=== PATIENT | male | born 1970 | race Caucasian/White ===

== ENCOUNTER 2017-09-25 13:46 | Emergency (ER) | payer SELFPAY ==
[2017-09-25 14:43] LABS: Bilirubin Negative (Negative); Blood, Urine Moderate (Negative); Clarity CLEAR (Clear); Glucose, Urine (Dipstick) Negative (Negative); Leukocyte Negative (Negative); Nitrite Negative (Negative); Protein, Urine (Dipstick) Negative (Neg-Trace); Specific Gravity, Urine 1.008 (1.002-1.036); Urobilinogen 0.2 mg/dL (0.2-1.0); pH, Urine 6.5 (5.0-9.0)
[2017-09-25 14:45] LABS: Bacteria/HPF None Seen HPF (None Seen); Hyaline Casts/LPF 0-3 HYALINE CAST LPF (0-3 Hyaline); Squamous Epithelial None Seen HPF (0-3); WBC/HPF None Seen HPF (0-3)
== END 2017-09-25 15:57 | disposition home or self-care (01) ==
LOC: ERS 13:46
DX: N40.1 Benign prostatic hyperplasia with lower urinary tract symptoms (principal); R33.8 Other retention of urine; F32.9 Major depressive disorder, single episode, unspecified; F41.9 Anxiety disorder, unspecified; F17.210 Nicotine dependence, cigarettes, uncomplicated
CPT/HCPCS: 81003; 81015; 99283

== ENCOUNTER 2017-11-02 11:16 | Emergency (ER) | payer SELFPAY | END 2017-11-02 12:05 | disposition home or self-care (01) | LOC: SCSER 11:16 | DX: J11.1 Influenza due to unidentified influenza virus with other respiratory manifestations (principal); F41.9 Anxiety disorder, unspecified; F32.9 Major depressive disorder, single episode, unspecified; F17.220 Nicotine dependence, chewing tobacco, uncomplicated; Z79.899 Other long term (current) drug therapy | CPT/HCPCS: 99406 ==

== ENCOUNTER 2019-01-09 11:17 | Emergency (ER) | payer BC, SELFPAY ==
[2019-01-09] MEDS ORDERED: predniSONE 20 MG TAB ONE (12:37)
[2019-01-09] MEDS ORDERED: Ketorolac Tromethamine 30 MG/ML VIAL ONE (12:37)
== END 2019-01-09 13:15 | disposition home or self-care (01) ==
LOC: SCSER 11:17
DX: M54.42 Lumbago with sciatica, left side (principal); F17.220 Nicotine dependence, chewing tobacco, uncomplicated
CPT/HCPCS: 96372; J1885; J7512

== ENCOUNTER 2019-07-19 06:44 | Emergency (ER) | payer BC, SELFPAY ==
[2019-07-19] MEDS ORDERED: Ondansetron PF 4 MG/2 ML Vial ONE (07:43)
[2019-07-19 08:04] LABS: #Eosinphils 0.1 thou/uL (0.0-0.7); #Lymphocytes 0.4 thou/uL (1.20-3.40); #Monocytes 0.4 thou/uL (0.11-0.59); #Neutrophils 11.2 thou/uL (1.40-6.50); %Basophils 0.1 % (0.0-1.0); %Eosinophils 0.9 % (0.0-10.0); %Monocytes 3.4 % (0.0-10.0); %Neutrophils 92.7 % (42.0-75.0); Mean Corpuscular HGB CONC 34.4 g/dL (32.0-36.0); Mean Corpuscular Hemoglobin 31.3 pg (27.0-31.0); Mean Corpuscular Volume 91.1 fL (78.0-98.0); Mean Platelet Volume 7.7 fL (7.4-10.4); Platelet Count 199 thou/uL (130-400); RBC Distribution Width 11.4 % (11.5-14.5); Red Blood Cell (RBC) Count 4.46 mill/uL (4.70-6.10)
[2019-07-19 08:24] LABS: ALT (SGPT) 18 U/L (8-55); AST (SGOT) 16 U/L (5-34); Albumin 4.2 g/dL (3.5-5.0); Alkaline Phosphatase 64 U/L (40-110); Anion Gap 12 mmol/L (10-20); BUN (Urea Nitrogen) 27 mg/dL (8.9-20.6); Bilirubin, Total 0.9 mg/dL (0.2-1.2); Calc. Creatinine Clearance 0 mL/min (70-130); Calcium 9.5 mg/dL (7.8-10.44); Carbon Dioxide 24 mmol/L (22-29); Chloride 106 mmol/L (98-107); Estimated GFR-MDRD Greater than 90; Globulin 2.4 g/dL (2.4-3.5); Glucose 101 mg/dL (70-105); Lipase 11 U/L (8-78); Potassium 3.5 mmol/L (3.5-5.1); Protein, Total 6.6 g/dL (6.0-8.3); Sodium 138 mmol/L (136-145)
== END 2019-07-19 09:09 | disposition home or self-care (01) ==
LOC: ERS 06:44
DX: R11.2 Nausea with vomiting, unspecified (principal); R19.7 Diarrhea, unspecified; F41.9 Anxiety disorder, unspecified; F32.9 Major depressive disorder, single episode, unspecified; F17.220 Nicotine dependence, chewing tobacco, uncomplicated; Z79.899 Other long term (current) drug therapy
CPT/HCPCS: 36415; 80053; 83690; 84484; 85025; 93005; J0500; J2405

== ENCOUNTER 2020-07-15 10:44 | Inpatient (IN) | payer OTHER, SELFPAY ==
[2020-07-15] MEDS ORDERED: Cefepime 2 GM VIAL ONE (11:23)
[2020-07-15] MEDS ORDERED: Acetaminophen 500 MG TAB ONE (11:23)
[2020-07-15 12:07] LABS: #Eosinphils 0.4 thou/uL (0.0-0.7); #Lymphocytes 0.7 thou/uL (1.20-3.40); #Monocytes 0.8 thou/uL (0.11-0.59); #Neutrophils 4.8 thou/uL (1.40-6.50); %Basophils 0.4 % (0.0-1.0); %Eosinophils 5.4 % (0.0-10.0); %Lymphocytes 10.5 % (21.0-51.0); %Monocytes 11.6 % (0.0-10.0); %Neutrophils 72.1 % (42.0-75.0); Hemoglobin 14.5 g/dL (14.0-18.0); Mean Corpuscular HGB CONC 34.6 g/dL (32.0-36.0); Mean Corpuscular Hemoglobin 31.6 pg (27.0-31.0); Mean Corpuscular Volume 91.6 fL (78.0-98.0); Mean Platelet Volume 7.7 fL (7.4-10.4); Platelet Count 190 thou/uL (130-400); RBC Distribution Width 11.3 % (11.5-14.5); Red Blood Cell (RBC) Count 4.58 mill/uL (4.70-6.10); White Blood Cell (WBC) Count 6.6 thou/uL (4.8-10.8)
[2020-07-15] MEDS ORDERED: Vancomycin 1.5 GRAM/300 ML BAG 1.5 GM in Premix Bag 1 BAG IVPB SCH (12:15)
--- NOTE | 2020-07-15 12:28 | ULT ---
Exam:Rightlower extremity venous ultrasound with Doppler HISTORY: Rightlower extremity swelling COMPARISON: None TECHNIQUE: Grayscale, color flow, Doppler imaging and spectral wave muscle performed right lower extr emity venous system FINDINGS: There is compressibility, presence of flow and augmentation in the common femoral vein, femoral vein and popliteal vein. There is flow in the posterior tibial vein. There is flow in the greater saphenous vein and profunda femoral vein There is edema involving the right ankle. There is a 0.6 x 1.9 cm nonspecific fluid collection. There is a second ill-defined hypoechoic focus measuring 1.2 x 1.5 x 0.3 cm. IMPRESSION: 1. No thrombus in the right lower extremity deep venous system. 2. Edema at the level the ankle. Small fluid collection is nonspecific. There is also ill-defined hyp oechoic area. Correlate for phlegmon versus possible early developing abscess.
[2020-07-15 12:34] LABS: ALT (SGPT) 15 U/L (8-55); AST (SGOT) 17 U/L (5-34); Albumin 3.8 g/dL (3.5-5.0); Alkaline Phosphatase 100 U/L (40-110); Anion Gap 13 mmol/L (10-20); BUN (Urea Nitrogen) 16 mg/dL (8.9-20.6); Bilirubin, Total 0.2 mg/dL (0.2-1.2); Calc. Creatinine Clearance 0 mL/min (70-130); Calcium 9.8 mg/dL (7.8-10.44); Carbon Dioxide 28 mmol/L (22-29); Chloride 103 mmol/L (98-107); Estimated GFR-MDRD Greater than 90; Globulin 3.4 g/dL (2.4-3.5); Glucose 73 mg/dL (70-105); Potassium 3.7 mmol/L (3.5-5.1); Protein, Total 7.2 g/dL (6.0-8.3); Sodium 140 mmol/L (136-145)
--- NOTE | 2020-07-15 14:08 | RAD ---
RIGHT ANKLE 3 VIEWS: Date: 07/15/2020 INDICATION: History of right ankle redness and swelling with pain. COMPARISON: Prior exam dated 01/31/2013. FINDINGS: No acute fracture or subluxation is evident. There is soft tissue swelling surrounding the right ankl e. Enthesopathic change is seen off of the calcaneus, slightly more prominent than on the prior exam. IMPRESSION: Soft tissue swelling of the right ankle without acute osseous abnormality. POS: BH
[2020-07-15] MEDS ORDERED: Ondansetron ODT 4 MG TAB PO PRN (14:26)
[2020-07-15] MEDS ORDERED: Ondansetron PF 4 MG/2 ML Vial IVP PRN (14:26)
[2020-07-15] MEDS ORDERED: Acetaminophen 325 MG TAB PO PRN (14:26)
[2020-07-15] MEDS ORDERED: Acetaminophen/Codeine 30-300mg Tablet PO PRN (14:31)
[2020-07-15 16:23] VITALS: BMI 27.7
[2020-07-15] MEDS: Sodium Chloride 0.9% 1,000 ML IV SCH (16:35)
[2020-07-15] MEDS: HYDROcodone/Acetaminophen 7.5/325 mg Tablet PO PRN ×2 (18:26→22:38)
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
[2020-07-15] MEDS: Piperacillin/Tazobactam 4.5 GM in Sodium Chloride 0.9% 100 ML IVPB SCH (21:40)
[2020-07-15] MEDS ORDERED: PARoxetine 20 MG TAB PO SCH (23:45)
[2020-07-15] MEDS: Vancomycin 1.5 GRAM/300 ML BAG 1.5 GM in Premix Bag 1 BAG IVPB SCH (23:56)
[2020-07-15] MEDS: PARoxetine 20 MG TAB PO SCH (23:58)
[2020-07-16] MEDS: Sodium Chloride 0.9% 1,000 ML IV SCH (06:17)
[2020-07-16] MEDS: Piperacillin/Tazobactam 4.5 GM in Sodium Chloride 0.9% 100 ML IVPB SCH ×3 (06:23→21:15)
[2020-07-16] MEDS: HYDROcodone/Acetaminophen 7.5/325 mg Tablet PO PRN ×3 (06:26→21:14)
[2020-07-16 06:55] LABS: #Eosinphils 0.2 thou/uL (0.0-0.7); #Lymphocytes 0.5 thou/uL (1.20-3.40); #Monocytes 0.6 thou/uL (0.11-0.59); #Neutrophils 5.5 thou/uL (1.40-6.50); %Eosinophils 2.6 % (0.0-10.0); %Lymphocytes 7.3 % (21.0-51.0); %Monocytes 9.2 % (0.0-10.0); %Neutrophils 80.9 % (42.0-75.0); Hemoglobin 13.7 g/dL (14.0-18.0); Mean Corpuscular HGB CONC 33.1 g/dL (32.0-36.0); Mean Corpuscular Volume 93.7 fL (78.0-98.0); Mean Platelet Volume 7.9 fL (7.4-10.4); Platelet Count 184 thou/uL (130-400); RBC Distribution Width 11.5 % (11.5-14.5); Red Blood Cell (RBC) Count 4.43 mill/uL (4.70-6.10); White Blood Cell (WBC) Count 6.7 thou/uL (4.8-10.8)
[2020-07-16 07:14] LABS: Anion Gap 10 mmol/L (10-20); BUN (Urea Nitrogen) 9 mg/dL (8.9-20.6); Calc. Creatinine Clearance 164 mL/min (70-130); Calcium 9.5 mg/dL (7.8-10.44); Carbon Dioxide 24 mmol/L (22-29); Chloride 107 mmol/L (98-107); Estimated GFR-MDRD Greater than 90; Glucose 99 mg/dL (70-105); Potassium 3.8 mmol/L (3.5-5.1); Sodium 137 mmol/L (136-145)
--- NOTE | 2020-07-16 08:30 | CON ---
DATE OF CONSULTATION: 07/16/2020 REQUESTING PHYSICIAN: Johnnie Correia MD. CONSULTING PHYSICIAN: Tim Ward MD. REASON FOR CONSULTATION: Right foot erythema and swelling after subcutaneous injection. BRIEF CLINICAL HISTORY: Hans is a 49-year-old male, who was admitted by the Medicine Service yesterday after he presented to the emergency room for pain in the right foot which started after he had injected himself with heroin. He had delayed subacute onset of swelling and discomfort in and around the injection site, which got worse until he presented to the emergency room after he could not stand and bear weight. He has been started on empiric antibiotics to include vancomycin and Zosyn. Our service was consulted to evaluate for septic joint. Plain radiographs have been obtained, which do not demonstrate a lytic or blastic changes in and around the ankle. No cortical disruption is identified. C-reactive protein was 2.88 and he does not have an elevated white count at this time. He denies any constitutional symptoms. He denies any nausea or vomiting and is essentially pain which brought him to present. He denies any symptoms of COVID to include fevers, nausea, vomiting, headaches, or myalgias. PHYSICAL EXAMINATION: VITAL SIGNS: Temperature 98.9, pulse 78, respiratory rate 18 and nonlabored, O2 saturation 99% on room air, blood pressure is 129/77. GENERAL: He is alert and oriented to person, place, time, and situation. Responsive and appropriate with examiner. MUSCULOSKELETAL: Inspection of the right lower extremity demonstrates him to have erythema circumferentially around the superior flare of the medial malleolus on the right ankle. He does have a little erythema extending up on the medial leg along tibial mid smith, but there is some sparing between the central aspect of the erythema over the malleolus and the erythema on the mid smith which does juanita. He has adequate range of motion to plantar flexion, dorsiflexion, inversion, eversion passively, and actively, but tenderness is elicited with palpation in and around his erythema. It is exquisitely tender and juanita with pressure. No active oozing is noted. LABORATORY DATA: White blood cell count is 6.7, hemoglobin 13, hematocrit 41.5. Sedimentation rate is 6 and C-reactive protein was 2.88. IMPRESSION: Right ankle instep cellulitis localized over injection site. PLAN: 1. At this point, I will defer to Medicine to continue empiric antibiotics for most likely a Staphylococcus. 2. No surgical intervention is warranted at this point, but we will recheck the patient in 24 hours and I may make him n.p.o. after midnight in the morning just in case there are some loculations to debride. No further studies are warranted at this point, just clinical followup. Once his pain is improved, he may stand and bear weight as tolerated. Job ID: [id number]
[2020-07-16] MEDS ORDERED: FLU VACC QS2020-21(6MOS UP)/PF 60 MCG/0.5 ML SYRINGE IM ONE (09:00)
[2020-07-16] MEDS: Vancomycin 1.5 GRAM/300 ML BAG 1.5 GM in Premix Bag 1 BAG IVPB SCH (09:50)
[2020-07-16] MEDS: Enoxaparin Sodium 40 MG/0.4 ML SYRINGE SC SCH (09:51)
[2020-07-16] MEDS: PARoxetine 20 MG TAB PO SCH (09:52)
[2020-07-16] MEDS: Ketorolac Tromethamine 30 MG/ML VIAL IVP PRN ×2 (10:00→17:44)
[2020-07-16 10:56] LABS: SARS-CoV-2 MS2 Positive; SARS-CoV-2 N Gene Positive; SARS-CoV-2 S Gene Positive; SARS-CoV-2 by NAA DETECTED (NotDetected); SARS-CoV-2 orf1ab Positive
[2020-07-16 12:49] LABS: HBSAg Index 0.21 S/CO (0-0.99); HIV (1/2) Antibody/Antigen Non-Reactive (NonReactive); HIV 1/2 INDEX 0.13 S/CO (<1.00); Hep B Surf Ag Non-Reactive S/CO (NonReactive); Hep C IgG Ab Non-Reactive (NonReactive)
[2020-07-16 12:53] LABS: HBSAB Concentration 42.08 mIU/mL; Hep B Surf AB Reactive (NonReactive)
--- NOTE | 2020-07-16 13:15 | PDOC.HOSPP ---
- Subjective Encounter Date: 07/16/20 Encounter Time: 08:00 Subjective: F/u: right foot cellulitis, heroin abuse The patient still complains of right foot pain but states the swelling has diminished some. He states he was clean from heroin for 7 years, but relapsed earlier this year when he was having months of weakness and fatigue. He was found to have heart rate in the 30's and had a pacemaker inserted in April. He has continued using heroin since then He still has been having generalized weakness. He decided to get heroin and shoot it in his arm, but wasn't able to, so out of anger injected his foot. He avoided coming to the hospital for a few days because he was embarrassed but his friend encouraged him to . He states it is still very painful to stand on his right leg and he is unable to walk . His calf pain has improved He denies any significant chest pain or shortness of breath. Patient is sexually active occasionally. Reports using clean needles and negative HIV test and hepatitis test last year. He is agreeable to retesting - Objective Vital Signs & Weight: Vital Signs (12 hours) Temp Pulse Resp BP Pulse Ox 07/16/20 11:06 99.0 F 80 20 123/72 97 07/16/20 07:21 99.1 F 82 18 143/75 H 95 07/16/20 04:13 98.1 F 78 18 129/77 99 Weight Weight 210 lb Result Diagrams: 07/16/20 06:26 07/16/20 06:26 Hospitalist ROS - Review of Systems Constitutional: denies: fever, chills - Medication Medications: Active Medications Generic Name Dose Route Start Last Admin Trade Name Marco Antonio PRN Reason Stop Dose Admin Hydrocodone Bitart/Acetaminophen 1 tab 07/15/20 17:28 07/16/20 06:26 Hydrocodone/Acetaminophen 7.5/325 Mg Tablet PO 1 tab Q4H PRN Administration Mild Pain (1-3) Enoxaparin Sodium 40 mg 07/16/20 09:00 07/16/20 09:51 Enoxaparin Sodium 40 Mg/0.4 Ml Syringe SC 40 mg 0900 CHRIS Administration Piperacillin Sod/Tazobactam 100 mls @ 200 mls/hr 07/15/20 22:00 07/16/20 06:23 Sod 4.5 gm/ Sodium Chloride IVPB 100 mls Q8HR CHRIS Administration Vancomycin HCl 1.5 gm/ Device 300 mls @ 200 mls/hr 07/15/20 23:00 07/16/20 09:50 IVPB 300 mls 0700,1500,2300 CHRIS Administration Ketorolac Tromethamine 30 mg 07/15/20 23:16 07/16/20 10:00 Ketorolac Tromethamine 30 Mg/Ml Vial IVP 07/20/20 23:17 30 mg Q6H PRN Administration Pain Ondansetron HCl 4 mg 07/15/20 14:26 07/16/20 10:02 Ondansetron Pf 4 Mg/2 Ml Vial IVP 4 mg Q6H PRN Administration Nausea/Vomiting Paroxetine HCl 20 mg 07/15/20 09:00 07/16/20 09:52 Paroxetine 20 Mg Tab PO 20 mg DAILY CHRIS Administration - Exam General Appearance: NAD, awake alert Eye: PERRL, anicteric sclera ENT: normocephalic atraumatic, no oropharyngeal lesions Neck: no JVD Heart: no gallops, no rubs Heart - other findings: friction rub heard possibly left lower sternal border vs systolic murmur Respiratory: CTAB, no wheezes, no rales, no ronchi Gastrointestinal: soft, non-tender, non-distended, normal bowel sounds Extremities: no cyanosis, no clubbing, no edema Skin: normal turgor, no lesions, no rashes Skin - other findings: erythema extending up calf, but not significantly tender to palpation Neurological: cranial nerve grossly intact, normal sensation to touch, no weakness Musculoskeletal - other findings: palpable lump/mild abscess right ankle area. Warm and tender to palpation Psychiatric: normal affect, normal behavior, A&O x 3 Hosp A/P - Plan This is a 49 year old male who presented with right ankle abscess/cellulitis Right ankle abscess with cellulitis - area of swelling has improved . Continue IV vancomycin and zosyn - orthopedics was consulted and no surgical intervention for now, but will make NPO after midnight in case it is worsening Systolic murmur vs friction rub - ECHO is pending Heroin abuse - Patient states he has been to rehab three times and will probably check himself into rehab when he leaves the hospital - check HIV test, hepatitis B and C Generalized weakness - maybe COVID related? - will monitor - will order PT evaluation. Nonweight bearing to right leg for now COVID+ - will place on isolation precautions. He denies respiratory symptoms Anemia - Hb 13.7, will monitor DVT prophylaxis: lovenox Code status: full code
[2020-07-16 14:43] LABS: Vancomycin, Trough 27.3 ug/mL
[2020-07-16] MEDS ORDERED: Vancomycin 1.5 GRAM/300 ML BAG 1.5 GM in Premix Bag 1 BAG IVPB SCH (15:00)
[2020-07-17] MEDS: HYDROcodone/Acetaminophen 7.5/325 mg Tablet PO PRN ×3 (02:10→20:47)
[2020-07-17 02:34] LABS: Vancomycin, Random 7.1 ug/mL (See Comment)
[2020-07-17] MEDS: Vancomycin HCl 1.25 GM in Sodium Chloride 0.9% 250 ML 250 ML IVPB SCH ×3 (03:22→18:09)
[2020-07-17] MEDS: Ketorolac Tromethamine 30 MG/ML VIAL IVP PRN ×2 (05:28→13:04)
[2020-07-17] MEDS: Piperacillin/Tazobactam 4.5 GM in Sodium Chloride 0.9% 100 ML IVPB SCH ×3 (05:29→20:49)
[2020-07-17] MEDS: Enoxaparin Sodium 40 MG/0.4 ML SYRINGE SC SCH ×2 (09:31→09:48)
[2020-07-17] MEDS: PARoxetine 20 MG TAB PO SCH (09:31)
--- NOTE | 2020-07-17 10:51 | PRG ---
DATE OF SERVICE: 07/17/2020 SUBJECTIVE: Hans is a 49-year-old male, who is hospital day 2 for admission of a right foot cellulitis and probable abscess. Blood cultures have not yielded any organisms at this point. Subjectively, he is improving with the vancomycin and Zosyn. His white blood cell count still hovers around 6.7, and his pain is better and he has been able to stand, bear weight and mobilize on the foot. OBJECTIVE: VITAL SIGNS: Temperature 99.6, pulse 74, respiratory rate is 18, O2 saturation is 93% on room air, and blood pressure 119/64. GENERAL: He is alert and oriented to person, place, time, situation. Responsive and appropriate with examiner. EXTREMITIES: Visual inspection of the right lower extremity demonstrates him to have a small area of erythema, which measures about 8 x 8 cm in circumference and blanches with pressure. He still has a little erythema in the mid smith consistent with phlebitis. Otherwise, it is indurated and tender, this is just anterior to the lateral malleolus. IMPRESSION: Strongly suspect small subcutaneous abscess over the right anterior mid foot. PLAN: We will continue IV antibiotics for another 24 hours. I will go ahead and allow him to have regular diet at this point, but tomorrow morning, we could perform a bedside I and D with open packing and will have Wound Care come with us to pack and dress if needed. Job ID: [id number]
[2020-07-17] MEDS ORDERED: Lidocaine 2% 20 ml MDV SC SCH (12:45)
[2020-07-17] MEDS ORDERED: Lidocaine 1% (PF) 30 ML VIAL ONE (13:01)
--- NOTE | 2020-07-17 14:41 | OP ---
DATE OF PROCEDURE: 07/17/2020 PREOPERATIVE DIAGNOSIS: Right foot medial instep abscess. POSTPROCEDURE DIAGNOSIS: Right foot medial instep abscess. PROCEDURE PERFORMED: Incision, drainage, irrigation, debridement, washout, and packing of right foot abscess. BRIEF CLINICAL HISTORY: Hans is a 49-year-old male who has been admitted now for 2 days, receiving IV antibiotics in the form of Zosyn and vancomycin for a cellulitis of the right foot, which started when he was injecting heroin prior to admission. The injection site became erythematous and painful. He was admitted, started on empiric antibiotics. I saw him yesterday and he has had very little interval change in his abscess induration, which appears to be deeper than the subcutaneous layer on the medial instep just anterior to the medial malleolus of the right ankle. Therefore, I decided to go ahead and proceed with an incision, drainage, washout, irrigation, and debridement at the bedside under local to obtain culture as well as for symptomatic treatment. SPECIMENS: Culturette 2 sent, gross; appearance, brown, purulent, clumpy; drainage was ex-cavitated from the abscess and expressed from the wound. DESCRIPTION OF PROCEDURE: After informed consent was obtained, the patient was positioned appropriately in supine position. He received Toradol IV for pain control as well as 2% Xylocaine skin wheal local anesthetic lavage. After this was completed, a longitudinal incision was made directly over the apex of the abscess, which was noted by palpation. A good skin wheal anesthesia was obtained prior to this. I then used a Mosquito's to open the subcutaneous layer and immediately encountered the vault containing the brown purulent material, which was ex-cavitated with an instrumentation. Prior to this, copious irrigation was carried out with normal saline and Xylocaine. I then packed it with 1-inch strip of iodoform gauze. Sterile dressing was applied. Procedure was terminated without any complication. The patient tolerated well. The specimen was sent with Gram stain, culture and sensitivity. Also contacted the hospitalist service to decide whether or not Infectious Disease consult may be appropriate as a next step due to the fact that this did not have a typical gross appearance of staph or strep, but rather an atypical organism. We will follow up with Gram stain culture. Also consider treating empirically. Job ID: [id number]
--- NOTE | 2020-07-17 15:08 | PDOC.HOSPP ---
- Subjective Encounter Date: 07/17/20 Encounter Time: 10:00 Subjective: F/u: ankle abscess He states his leg pain is better and he was able to walk more, but still has severe pain standing for too long. He took a shower today. He had incision and drainage today, gross appearance did not look like staph per ortho The patient is interested in going to inpatient rehab after this, however dis cussed may be difficult if COVID positive - Objective Vital Signs & Weight: Vital Signs (12 hours) Temp Pulse Resp BP Pulse Ox 07/17/20 08:00 98.0 F 64 16 109/65 96 07/17/20 04:00 99.6 F 74 18 119/64 93 L Weight Weight 210 lb I&O: 07/16/20 07/17/20 07/18/20 06:59 06:59 06:59 Intake Total 2295 Output Total 650 Balance 1645 Result Diagrams: 07/16/20 06:26 07/16/20 06:26 Hospitalist ROS - Review of Systems Constitutional: denies: fever, chills - Medication Medications: Active Medications Generic Name Dose Route Start Last Admin Trade Name Freq PRN Reason Stop Dose Admin Hydrocodone Bitart/Acetaminophen 1 tab 07/15/20 17:28 07/17/20 02:10 Hydrocodone/Acetaminophen 7.5/325 Mg Tablet PO 1 tab Q4H PRN Administration Mild Pain (1-3) Enoxaparin Sodium 40 mg 07/16/20 09:00 07/17/20 09:48 Enoxaparin Sodium 40 Mg/0.4 Ml Syringe SC Not Given 0900 CHRIS Piperacillin Sod/Tazobactam 100 mls @ 200 mls/hr 07/15/20 22:00 07/17/20 05:29 Sod 4.5 gm/ Sodium Chloride IVPB 100 mls Q8HR CHRIS Administration Vancomycin HCl 1.25 gm/ Sodium 250 mls @ 166.667 mls/hr 07/17/20 03:00 07/17/20 11:34 Chloride IVPB 250 mls 0300,1100,1900 CHRIS Administration Ketorolac Tromethamine 30 mg 07/15/20 23:16 07/17/20 13:04 Ketorolac Tromethamine 30 Mg/Ml Vial IVP 07/20/20 23:17 30 mg Q6H PRN Administration Pain Ondansetron HCl 4 mg 07/15/20 14:26 07/16/20 10:02 Ondansetron Pf 4 Mg/2 Ml Vial IVP 4 mg Q6H PRN Administration Nausea/Vomiting Paroxetine HCl 20 mg 07/15/20 09:00 07/17/20 09:31 Paroxetine 20 Mg Tab PO Not Given DAILY CHRIS - Exam General Appearance: NAD, awake alert Eye: PERRL, anicteric sclera ENT: normocephalic atraumatic, no oropharyngeal lesions Neck: no JVD Heart: RRR, no murmur, no gallops, no rubs Respiratory: CTAB, no wheezes, no rales, no ronchi Gastrointestinal: soft, non-tender, non-distended, normal bowel sounds, no palpable masses Extremities: no cyanosis, no clubbing, no edema Extremities - other findings: right ankle abscess tender to palpation Skin - other findings: diminished erythema of the foot and leg. Swelling right foot Neurological: normal sensation to touch, no focal deficits, no new deficit Musculoskeletal: normal tone, normal strength, no muscle wasting Psychiatric: normal affect, normal behavior, A&O x 3 Hosp A/P - Plan ECHO: EF 55-60%, mild MR, mild TR This is a 49 year old male who presented with right ankle abscess/cellulitis Right ankle abscess with cellulitis - area of swelling has improved . Continue IV vancomycin and zosyn. Patient had beside I and D today. Gross appearance did not appear like staph - will follow up cultures - infectious disease consulted Systolic murmur vs friction rub - ECHO showed no vegetation Heroin abuse - Patient states he has been to rehab three times and will probably check himself into rehab when he leaves the hospital - HIV, hep B and C normal Generalized weakness - possibly from COVID - will monitor. PT is following the patient COVID+ - will place on isolation precautions for ten days. He denies respiratory symptoms Anemia - Hb 13.7, will monitor Dispo: f/u wound cultures DVT prophylaxis: lovenox Code status: full code
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
[2020-07-18 02:30] LABS: Vancomycin, Trough 13.4 ug/mL
[2020-07-18] MEDS: Vancomycin HCl 1.25 GM in Sodium Chloride 0.9% 250 ML 250 ML IVPB SCH ×3 (03:19→18:39)
[2020-07-18] MEDS: HYDROcodone/Acetaminophen 7.5/325 mg Tablet PO PRN ×4 (03:20→20:48)
[2020-07-18] MEDS: Piperacillin/Tazobactam 4.5 GM in Sodium Chloride 0.9% 100 ML IVPB SCH ×3 (04:51→21:37)
[2020-07-18] MEDS: Ketorolac Tromethamine 30 MG/ML VIAL IVP PRN ×3 (05:28→21:37)
[2020-07-18] MEDS: Enoxaparin Sodium 40 MG/0.4 ML SYRINGE SC SCH (07:12)
[2020-07-18] MEDS: PARoxetine 20 MG TAB PO SCH (07:12)
[2020-07-18] MEDS ORDERED: Morphine 4 MG/ML VIAL SLOW IVP SCH (09:45)
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
[2020-07-18] MEDS: Morphine 2 MG/ML VIAL SLOW IVP PRN ×3 (11:47→23:52)
--- NOTE | 2020-07-18 14:27 | PRG ---
DATE OF SERVICE: 07/18/2020 SUBJECTIVE: Mr. Jorge is less symptomatic, particularly in relationship to the right foot pain. Still with some brown-looking fluid in the foot according to orthopedic surgeon's review. No diarrhea. No respiratory symptoms. Voiding without difficulty and he has been afebrile throughout the hospital stay. OBJECTIVE: VITAL SIGNS: O2 saturations are 96% on room air and breathing at 18 times a minute. BP is normal. LUNGS: Symmetric air entry. HEART: S1 and S2, regular rate. ABDOMEN: Soft. EXTREMITIES: The right foot is dressed. Dressing not removed. LABORATORY DATA: White cell count 6.7, hemoglobin 13.7, platelets 184, 80% neutrophils. Creatinine 0.75. CRP 2.88. ASSESSMENT AND DISCUSSION: Longstanding IV heroin and methamphetamine use with relapse in April and two admissions since April for this problem and consequences of the injection sites. At this time, he is with abscess, which appears to be limited to the superficial layers of the cutaneous areas of the right foot status post incision and drainage. No evidence of tenosynovitis, septic arthritis, or osteomyelitis at this point in time. Blood cultures are negative. He has this probable foreign body in his right back area and that is going to have to be removed. Culture is still negative. Gram stain was negative. So, if the blood cultures remain negative and once things settle down, he can be discharged on oral doxycycline or Augmentin or quinolone. Regarding his COVID, thus far he seems to be having a mild trajectory, but still early on in the disease course. If he continues this way, then it would not prevent discharge planning and he would have to self quarantine at home until 10 days past the infection and another 7 to 8 days plus asymptomatic state. Job ID: [id number]
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
[2020-07-18] MEDS ORDERED: Melatonin 3 MG TAB PO PRN (21:32)
[2020-07-19] MEDS ORDERED: Morphine 2 MG/ML VIAL SLOW IVP SCH (00:30)
[2020-07-19] MEDS ORDERED: diphenhydrAMINE 12.5 MG/5 ML UDCUP PO SCH (01:30)
[2020-07-19] MEDS: Ketorolac Tromethamine 30 MG/ML VIAL IVP PRN ×2 (03:34→10:04)
[2020-07-19] MEDS: Vancomycin HCl 1.25 GM in Sodium Chloride 0.9% 250 ML 250 ML IVPB SCH ×3 (03:34→18:24)
[2020-07-19] MEDS: Piperacillin/Tazobactam 4.5 GM in Sodium Chloride 0.9% 100 ML IVPB SCH ×3 (05:52→22:58)
[2020-07-19] MEDS: PARoxetine 20 MG TAB PO SCH (10:03)
[2020-07-19] MEDS: Enoxaparin Sodium 40 MG/0.4 ML SYRINGE SC SCH (10:03)
[2020-07-19] MEDS: Morphine 2 MG/ML VIAL SLOW IVP PRN (11:47)
[2020-07-19] MEDS ORDERED: Nicotine 21 MG PATCH TD SCH (17:00)
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
[2020-07-19] MEDS: HYDROcodone/Acetaminophen 7.5/325 mg Tablet PO PRN (21:02)
[2020-07-20] MEDS: Vancomycin HCl 1.25 GM in Sodium Chloride 0.9% 250 ML 250 ML IVPB SCH ×2 (03:36→10:03)
[2020-07-20] MEDS: HYDROcodone/Acetaminophen 7.5/325 mg Tablet PO PRN ×2 (03:41→11:25)
[2020-07-20] MEDS ORDERED: Piperacillin/Tazobactam 4.5 GM VIAL ONE (05:23)
[2020-07-20] MEDS: Piperacillin/Tazobactam 4.5 GM in Sodium Chloride 0.9% 100 ML IVPB SCH (06:13)
[2020-07-20] MEDS: PARoxetine 20 MG TAB PO SCH (07:59)
[2020-07-20] MEDS: Enoxaparin Sodium 40 MG/0.4 ML SYRINGE SC SCH (07:59)
[2020-07-20 08:10] VITALS: BP 120/77; TEMP 98.4
[2020-07-20 10:29] LABS: Vancomycin, Trough 19.2 ug/mL
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
== END 2020-07-20 12:18 | disposition home or self-care (01) | DRG 579 ==
LOC: ERS 10:44 → T4-A 14:12
PROVIDERS: ADMIT Student in an Organized Health Care Education/Training Program; ATTEND Family Medicine
PROC: 8E0ZXY6 Isolation (ICD-10-PCS; 2020-07-16)
PROC: 0J9Q0ZZ Drainage of Right Foot Subcutaneous Tissue and Fascia, Open Approach (ICD-10-PCS; principal; 2020-07-17)
PROC: 0JC70ZZ Extirpation of Matter from Back Subcutaneous Tissue and Fascia, Open Approach (ICD-10-PCS; 2020-07-18)
DX: L02.415 Cutaneous abscess of right lower limb (principal); U07.1 COVID-19; F11.10 Opioid abuse, uncomplicated; F41.9 Anxiety disorder, unspecified; F32.9 Major depressive disorder, single episode, unspecified; F17.220 Nicotine dependence, chewing tobacco, uncomplicated; F15.10 Other stimulant abuse, uncomplicated; I50.9 Heart failure, unspecified; R01.1 Cardiac murmur, unspecified; L03.115 Cellulitis of right lower limb; D64.9 Anemia, unspecified; R01.2 Other cardiac sounds; M79.5 Residual foreign body in soft tissue; Z28.21 Immunization not carried out because of patient refusal; Z95.810 Presence of automatic (implantable) cardiac defibrillator; Z79.899 Other long term (current) drug therapy
CPT/HCPCS: 36415; 80048; 80053; 80202; 83605; 85025; 85652; 86140; 86706; 86803; 87040; 87070; 87205; 87340; 87389; 87635; 93005; 93306; 96365; 96367; J0692; J1650; J1885; J2270; J2405; J2543; J3370; J3490; J7050; Q0163; U0003

== ENCOUNTER 2020-10-16 16:44 | Emergency (ER) | payer OTHER | END 2020-10-16 17:25 | disposition home or self-care (01) | LOC: ERS 16:44 | DX: I10 Essential (primary) hypertension (principal); F17.220 Nicotine dependence, chewing tobacco, uncomplicated | CPT/HCPCS: 93005 ==

== ENCOUNTER 2021-12-29 13:24 | Emergency (ER) | payer BC, SELFPAY ==
[~2021-12-29 13:24] MED LIST: Iopamidol-370 76% 500 ML 1 ML ONE
[2021-12-29] MEDS ORDERED: Dicyclomine 20 MG/2 ML VIAL ONE (14:05)
[2021-12-29] MEDS ORDERED: Ondansetron PF 4 MG/2 ML Vial ONE (14:05)
[2021-12-29 14:09] LABS: #Eosinphils 0.2 thou/uL (0.0-0.7); #Lymphocytes 1.4 thou/uL (1.20-3.40); #Monocytes 0.5 thou/uL (0.11-0.59); #Neutrophils 4.9 thou/uL (1.40-6.50); %Basophils 0.5 % (0.0-1.0); %Eosinophils 2.7 % (0.0-10.0); %Lymphocytes 19.6 % (21.0-51.0); %Monocytes 6.5 % (0.0-10.0); %Neutrophils 70.7 % (42.0-75.0); Hemoglobin 15.3 g/dL (14.0-18.0); Mean Corpuscular HGB CONC 33.6 g/dL (32.0-36.0); Mean Corpuscular Hemoglobin 31.5 pg (27.0-31.0); Mean Corpuscular Volume 93.8 fL (78.0-98.0); Platelet Count 256 thou/uL (130-400); RBC Distribution Width 11.9 % (11.5-14.5); Red Blood Cell (RBC) Count 4.85 mill/uL (4.70-6.10); White Blood Cell (WBC) Count 6.9 thou/uL (4.8-10.8)
[2021-12-29 14:28] LABS: ALT (SGPT) 27 U/L (8-55); AST (SGOT) 25 U/L (5-34); Albumin 4.3 g/dL (3.5-5.0); Alkaline Phosphatase 68 U/L (40-110); Anion Gap 14 mmol/L (10-20); BUN (Urea Nitrogen) 16 mg/dL (8.9-20.6); Bilirubin, Total 0.6 mg/dL (0.2-1.2); Calc. Creatinine Clearance 0 mL/min (70-130); Calcium 10.3 mg/dL (7.8-10.44); Carbon Dioxide 22 mmol/L (22-29); Chloride 108 mmol/L (98-107); Globulin 3.1 g/dL (2.4-3.5); Glucose 89 mg/dL (70-105); Lipase 10 U/L (8-78); Potassium 3.7 mmol/L (3.5-5.1); Protein, Total 7.4 g/dL (6.0-8.3); Sodium 140 mmol/L (136-145)
[2021-12-29 14:32] LABS: Bacteria/HPF None Seen HPF (None Seen); Bilirubin Negative (Negative); Blood, Urine 1+ (Negative); Clarity Clear (Clear); Glucose, Urine (Dipstick) Normal (Negative); Ketone, Urine Negative (Negative); Leukocyte Negative Leu/uL (Negative); Nitrite Negative (Negative); Protein, Urine (Dipstick) Negative (Neg-Trace); RBC/HPF 0-3 HPF (0-3); Specific Gravity, Urine 1.012 (1.002-1.036); Squamous Epithelial None Seen HPF (0-3); Urobilinogen Normal mg/dL (Less than 2); WBC/HPF None Seen HPF (0-3); pH, Urine 6.5 (5.0-9.0)
== END 2021-12-29 15:28 | disposition home or self-care (01) ==
LOC: ERS 13:24
DX: K29.60 Other gastritis without bleeding (principal); K27.9 Peptic ulcer, site unspecified, unspecified as acute or chronic, without hemorrhage or perforation; F17.220 Nicotine dependence, chewing tobacco, uncomplicated; Z79.899 Other long term (current) drug therapy
CPT/HCPCS: 74177; 80053; 81003; 81015; 83690; 85025; 94760; 96372; 96374; J0500; J2405; Q9967

== ENCOUNTER 2022-10-13 07:44 | Day surgery (SDC) | payer BC ==
[2022-10-12 10:36] VITALS: BMI 32.3
[2022-10-13] MEDS ORDERED: Oxymetazoline HCl 0.05% (30 ML BOT) ONE ×2 (09:23→10:33)
[2022-10-13] MEDS ORDERED: Dexmedetomidine 200 MCG/2 ML VIAL ONE (10:30)
[2022-10-13] MEDS ORDERED: Famotidine/PF 20 mg/2ml Vial ONE (10:31)
[2022-10-13] MEDS ORDERED: Bacitracin Zinc Ointment 30 gm TUBE ONE (10:33)
[2022-10-13] MEDS ORDERED: Lidocaine 1% (PF) 30 ML VIAL ONE (10:33)
[2022-10-13] MEDS ORDERED: EPINEPHrine 1 MG/ML AMP ONE (10:33)
[2022-10-13] MEDS ORDERED: Dexamethasone 20 MG/5 ML VIAL ONE (10:52)
[2022-10-13] MEDS ORDERED: Ondansetron PF 4 MG/2 ML Vial ONE (10:52)
[2022-10-13] MEDS ORDERED: NEOSTIGMINE 3 MG/3 ML SYR 3 MG/3 ML SYRINGE ONE (10:52)
[2022-10-13] MEDS ORDERED: Lidocaine 1% PF 5 ML VIAL ONE (10:52)
[2022-10-13] MEDS ORDERED: ePHEDrine 50 MG/ML VIAL ONE (10:52)
[2022-10-13] MEDS ORDERED: PROPOFOL 200 MG/20 ML VIAL ONE (10:52)
[2022-10-13] MEDS ORDERED: Ketorolac Tromethamine 30 MG/ML VIAL ONE (10:52)
[2022-10-13] MEDS ORDERED: Rocuronium Bromide 10 MG/ML (10ML VIAL) ONE (10:52)
[2022-10-13] MEDS ORDERED: Rocuronium Bromide 50 MG/5 ML VIAL ONE (11:06)
== END 2022-10-13 13:42 | disposition home or self-care (01) ==
LOC: SDC 07:44
PROVIDERS: ATTEND Otolaryngology Plastic Surgery within the Head & Neck
PROC: 09SM0ZZ Reposition Nasal Septum, Open Approach (ICD-10-PCS; principal; 2022-10-13)
PROC: 099Q8ZZ Drainage of Right Maxillary Sinus, Via Natural or Artificial Opening Endoscopic (ICD-10-PCS; principal; 2022-10-13)
PROC: 099T8ZZ Drainage of Left Frontal Sinus, Via Natural or Artificial Opening Endoscopic (ICD-10-PCS; principal; 2022-10-13)
PROC: 099R8ZZ Drainage of Left Maxillary Sinus, Via Natural or Artificial Opening Endoscopic (ICD-10-PCS; principal; 2022-10-13)
PROC: 099X8ZZ Drainage of Left Sphenoid Sinus, Via Natural or Artificial Opening Endoscopic (ICD-10-PCS; principal; 2022-10-13)
PROC: 8E09XBZ Computer Assisted Procedure of Head and Neck Region (ICD-10-PCS; principal; 2022-10-13)
PROC: 099S8ZZ Drainage of Right Frontal Sinus, Via Natural or Artificial Opening Endoscopic (ICD-10-PCS; principal; 2022-10-13)
PROC: 09TU8ZZ Resection of Right Ethmoid Sinus, Via Natural or Artificial Opening Endoscopic (ICD-10-PCS; principal; 2022-10-13)
PROC: 099W8ZZ Drainage of Right Sphenoid Sinus, Via Natural or Artificial Opening Endoscopic (ICD-10-PCS; principal; 2022-10-13)
PROC: 095L0ZZ Destruction of Nasal Turbinate, Open Approach (ICD-10-PCS; principal; 2022-10-13)
PROC: 09TV8ZZ Resection of Left Ethmoid Sinus, Via Natural or Artificial Opening Endoscopic (ICD-10-PCS; principal; 2022-10-13)
DX: J32.4 Chronic pansinusitis (principal); J34.2 Deviated nasal septum; J34.3 Hypertrophy of nasal turbinates; J33.9 Nasal polyp, unspecified; J34.89 Other specified disorders of nose and nasal sinuses; J31.0 Chronic rhinitis; G47.30 Sleep apnea, unspecified; Z79.899 Other long term (current) drug therapy; Z95.0 Presence of cardiac pacemaker
CPT/HCPCS: J0171; J1100; J1885; J2001; J2405; J2704; J3490; S0028

== ENCOUNTER 2023-09-07 15:59 | Emergency (ER) | payer BC ==
[2023-09-07 16:45] LABS: Bacteria/HPF None Seen HPF (None Seen); Bilirubin Negative (Negative); Blood, Urine 2+ (Negative); CAUTI Indications for Culture Dysuria,urgency,freq; Clarity Clear (Clear); Glucose, Urine (Dipstick) Normal (Negative); Ketone, Urine Negative (Negative); Leukocyte Negative Leu/uL (Negative); Nitrite Negative (Negative); Protein, Urine (Dipstick) Negative (Neg-Trace); Specific Gravity, Urine 1.019 (1.002-1.036); Squamous Epithelial None Seen HPF (0-3); Urobilinogen Normal mg/dL (Less than 2); WBC/HPF 0-3 HPF (0-3)
[2023-09-07 16:46] LABS: Urine Culture Reflex No No
== END 2023-09-07 20:24 | disposition home or self-care (01) ==
LOC: ERS 15:59
DX: R35.0 Frequency of micturition (principal); F17.220 Nicotine dependence, chewing tobacco, uncomplicated; F17.290 Nicotine dependence, other tobacco product, uncomplicated
CPT/HCPCS: 74176; 81001

== ENCOUNTER 2024-07-20 14:21 | Emergency (ER) | payer BC ==
[~2024-07-20 14:21] MED LIST changes: -Iopamidol-370 76% 500 ML 1 ML ONE; +Iopamidol-370 76% 500 ML MDV (1 ML CHARGE) ONE
[2024-07-20] MEDS ORDERED: Ondansetron PF 4 MG/2 ML Vial ONE (15:26)
[2024-07-20] MEDS ORDERED: Morphine 2 MG/ML VIAL ONE (15:26)
[2024-07-20 15:31] LABS: #Basophils 0.07 10x3/uL (0.0-0.2); %Basophils 0.7 % (0.0-1.0); %Eosinophils 0.7 % (0.0-10.0); %Lymphocytes 21.8 % (21.0-51.0); %Monocytes 5.9 % (0.0-10.0); %Neutrophils 70.6 % (42.0-75.0); Hematocrit 43.4 % (42.0-52.0); Hemoglobin 14.6 g/dL (14.0-18.0); Mean Corpuscular HGB CONC 33.6 g/dL (32.0-36.0); Mean Corpuscular Volume 89.3 fL (78.0-98.0); Mean Platelet Volume 9.3 fL (7.4-10.4); Platelet Count 265 10x3/uL (130-400); RBC Distribution Width 12.3 % (11.5-14.5); Red Blood Cell (RBC) Count 4.86 mill/uL (4.70-6.10)
[2024-07-20 15:54] LABS: ALT (SGPT) 39 U/L (8-55); AST (SGOT) 26 U/L (5-34); Albumin 4.1 g/dL (3.5-5.0); Alkaline Phosphatase 64 U/L (40-110); Anion Gap 12 mmol/L (10-20); BUN (Urea Nitrogen) 14 mg/dL (8.4-25.7); Bilirubin, Total 0.6 mg/dL (0.2-1.2); Calc. Creatinine Clearance 0 mL/min (70-130); Calcium 9.9 mg/dL (7.8-10.44); Carbon Dioxide 25 mmol/L (22-29); Chloride 103 mmol/L (98-107); Estimated GFR 105; Globulin 2.8 g/dL (2.4-3.5); Glucose 80 mg/dL (70-105); Lipase 19 U/L (8-78); Potassium 3.7 mmol/L (3.5-5.1); Protein, Total 6.9 g/dL (6.0-8.3); Sodium 136 mmol/L (136-145)
[2024-07-20 15:57] LABS: Troponin I Less than 0.010 ng/mL (< 0.028)
== END 2024-07-20 16:35 | disposition home or self-care (01) ==
LOC: ERS 14:21
DX: A04.8 Other specified bacterial intestinal infections (principal); F17.220 Nicotine dependence, chewing tobacco, uncomplicated; F17.290 Nicotine dependence, other tobacco product, uncomplicated
CPT/HCPCS: 36415; 71045; 74177; 76705; 80053; 83690; 83880; 84484; 85025; 85379; 93005; 96374; 96375; J2272; J2405

== ENCOUNTER 2024-09-01 14:20 | Outpatient (CLI) | payer BC | END 2024-09-01 14:21 | disposition home or self-care (01) | LOC: ULT 14:20 | PROVIDERS: ATTEND Internal Medicine Gastroenterology | DX: R10.11 Right upper quadrant pain (principal) | CPT/HCPCS: 76705 ==

== ENCOUNTER 2024-09-25 09:14 | Outpatient (CLI) | payer BC ==
[2024-09-25] MEDS ORDERED: Sterile Water 10 ML ONE (09:20)
[2024-09-25] MEDS ORDERED: Sincalide 5 MCG VIAL ONE (09:20)
[2024-09-25] MEDS ORDERED: Bacteriostatic Normal Saline 30 ML VIAL ONE (09:21)
== END 2024-09-25 09:15 | disposition home or self-care (01) ==
LOC: NM 09:14
PROVIDERS: ATTEND Physician Assistant Medical
DX: R10.11 Right upper quadrant pain (principal); K82.8 Other specified diseases of gallbladder
CPT/HCPCS: 78227; A9537; J2805

== ENCOUNTER 2025-07-31 13:07 | Emergency (ER) | payer BC ==
[2025-07-31 13:59] LABS: #Basophils 0.06 10x3/uL (0.0-0.2); #Eosinophils 0.21 10x3/uL (0.0-0.7); #Monocytes 0.81 10x3/uL (0.11-0.59); #Neutrophils 8.56 10x3/uL (1.40-6.50); %Basophils 0.5 % (0.0-1.0); %Eosinophils 1.7 % (0.0-10.0); %Lymphocytes 20.3 % (21.0-51.0); %Monocytes 6.7 % (0.0-10.0); %Neutrophils 70.6 % (42.0-75.0); Hematocrit 46.2 % (42.0-52.0); Hemoglobin 15.6 g/dL (14.0-18.0); Mean Corpuscular Hemoglobin 30.1 pg (27.0-31.0); Mean Corpuscular Volume 89.0 fL (78.0-98.0); Platelet Count 262 10x3/uL (130-400); Red Blood Cell (RBC) Count 5.19 mill/uL (4.70-6.10); White Blood Cell (WBC) Count 12.13 10x3/uL (4.8-10.8)
[2025-07-31 14:13] LABS: ALT (SGPT) 39 U/L (Less than 45); AST (SGOT) 24 U/L (11-34); Albumin 4.4 g/dL (3.1-4.5); Alkaline Phosphatase 75 U/L (40-110); Anion Gap 13 mmol/L (10-20); BUN (Urea Nitrogen) 14 mg/dL (8.4-25.7); Bilirubin, Total 0.3 mg/dL (0.3-1.2); Calc. Creatinine Clearance 0 mL/min (70-130); Calcium 10.4 mg/dL (7.8-10.44); Carbon Dioxide 25 mmol/L (22-29); Chloride 108 mmol/L (98-107); Globulin 2.7 g/dL (2.4-3.5); Glucose 78 mg/dL (70-105); Lipase 56 U/L (8-78); Magnesium 2.2 mg/dL (1.6-2.6); Potassium 4.2 mmol/L (3.5-5.1); Sodium 142 mmol/L (136-145)
== END 2025-07-31 16:20 | disposition home or self-care (01) ==
LOC: ERS 13:07
DX: R06.02 Shortness of breath (principal); I10 Essential (primary) hypertension; F17.220 Nicotine dependence, chewing tobacco, uncomplicated; F17.290 Nicotine dependence, other tobacco product, uncomplicated; Z55.6 Problems related to health literacy
CPT/HCPCS: 71045; 80053; 83690; 83735; 83880; 84484; 85025; 85379; 87428; 93005